=== PATIENT | male | born 1985 | race African-American/Black ===

== ENCOUNTER 2019-11-07 20:31 | Emergency (ER) | payer OTHER, SELFPAY ==
--- NOTE | ~2019-11-07 | CT_ITS ---
EXAMINATION: CT soft tissue neck w con DATE: 11/07/2019 21:47 INDICATION: A sore throat with muffled voice TECHNIQUE: Computed tomography (CT) of the neck was performed with 75 mL Omnipaque-350 intravenous co ntrast. The dose-length product was 520.73 mGy-cm. Automated exposure control and iterative reconstru ction technique were employed. COMPARISON: None FINDINGS: There is bilateral tonsillar enlargement. No drainable fluid collection to suggest abscess. Paranasal sinuses and mastoids are pneumatized. No cervical lymphadenopathy. Visualized lung apices are unremarkable. IMPRESSION: 1. Bilateral tonsillar enlargement, compatible with tonsillitis. No evidence for drainable abscess. Reviewed, dictated and finalized at [facility]. IMPRESSION: 1. Bilateral tonsillar enlargement, compatible with tonsillitis. No evidence fo r drainable abscess.
[2019-11-07 20:33] VITALS: BP 172/96; PULSE 102; RESP 19; TEMP 36.8; O2SAT 98
[2019-11-07 21:35] LABS: Basophils Absolute Auto 0.1 K/mm3 (0.0-0.1); Basophils Percent Auto 0.4 % (0.2-1.2); Eosinophils Percent Auto 0.2 % (0-4.4); Hematocrit 40.2 % (42.0-52.0); Hemoglobin 13.7 g/dL (14.0-18.0); Immature Granulocyte Absolute 0.07 K/mm3 (0.00-0.031); Immature Granulocyte Percent A 0.4 % (0-0.5); Lymphocytes Absolute Auto 1.71 K/mm3 (0.9-3.2); Lymphocytes Percent Auto 9.2 % (18.3-44.2); Mean Corpuscular HGB Conc 34.1 g/dl (32-36); Mean Corpuscular Hemoglobin 30.6 pg (26-34); Mean Corpuscular Volume 89.9 fl (80-100); Mean Platelet Volume 9.3 fl (7.4-10.4); Monocytes Absolute Auto 1.3 K/mm3 (0.1-0.6); Monocytes Percent Auto 6.9 % (2.6-8.5); Neutrophils Absolute Auto 15.5 K/mm3 (1.3-6.7); Neutrophils Percent Auto 82.9 % (45.5-73.1); Platelet Count Result 339 k/mm3 (150-375); Red Blood Count 4.47 M/mm3 (4.6-6.20); Red Cell Distribution Width 12.5 % (11.5-14.5); White Blood Count 18.6 K/mm3 (4.5-10.0)
[2019-11-07 21:42] LABS: Estimated CRCL calculation 168 ml/min; Estimated Glomerular Filt Rate > 60
[2019-11-07 21:47] LABS: Anion Gap 11 mmol/L (8-16); Blood Urea Nitrogen 13 mg/dL (9-20); Calcium 9.1 mg/dL (8.4-10.2); Carbon Dioxide 23 mmol/L (22-30); Chloride 98 mmol/L (98-107); Estimated CRCL calculation 168 ml/min; Estimated Glomerular Filt Rate > 60; Glucose 373 mg/dL (75-110); Potassium 4.5 mmol/L (3.4-5.0); Sodium 132 mmol/L (137-145)
[2019-11-07 21:56] LABS: Monoscreen Negative (Negative); Negative Monotest Control Negative (Negative); Positive Monotest Control Positive (Positive)
[2019-11-07] MEDS: AMPICILLIN SULB 3 GM/NS 100 ML 3 GM/100 ML VIAL IVPB (22:21)
--- NOTE | 2019-11-07 23:35 | ED.GENADULT ---
HPI - General Adult General Chief complaint: Dental/Oral Stated complaint: sore throat Time Seen by Provider: 11/07/19 20:40 History of Present Illness HPI narrative: Patient is a 33-year-old male who presents ER with sore throat. Ongoing over the last couple of days. Was seen at another hospital and discharged couple days ago. Reports her throat has increased since then denies having muffled voice occasionally difficulty swallowing although he can still tolerate oral secretions and fluids. No fevers or chills. Has some discomfort in the anterior neck. No loss of range of motion. Related Data Home Medications Medication Instructions Recorded Confirmed cholecalciferol (vitamin D3) 1,250 50,000 unit PO WEEKLY 05/30/19 09/06/19 mcg (50,000 unit) capsule escitalopram oxalate 10 mg tablet 10 mg PO DAILY 05/30/19 09/06/19 atorvastatin 10 mg tablet 10 mg PO QPM tablet 06/18/19 09/06/19 Allergies Allergy/AdvReac Type Severity Reaction Status Date / Time Fish Containing Products Allergy Mild Vomiting Verified 11/07/19 20:38 peanut Allergy Anaphylaxis Verified 11/07/19 20:39 Review of Systems Constitutional: Constitutional: Denies chills, Denies fever(s) and Denies weakness ENT: Denies nasal congestion and Reports sore throat Comments: Pain with swallowing Respiratory: Respiratory: Denies cough and Denies dyspnea Gastrointestinal: Gastrointestinal: Denies abdominal pain, Denies nausea and Denies vomiting PMFSH Past Medical History Medical History (Updated 11/08/19 @ 00:00 by Sumeet Valle) Essential hypertension Type 1 diabetes mellitus with hyperglycemia, with long-term current use of insulin Surgical History Surgical History (Updated 11/07/19 @ 23:40 by Steve Borjas MD) No pertinent past surgical history Social History Social History Second hand tobacco smoke exposure: Yes Alcohol intake: current Substance use type: marijuana Gender identity (if verbalized by the patient): Male Exam Narrative: Exam Narrative: GENERAL: Well-appearing, well-nourished, and in no acute distress. HEAD: Normocephalic, atraumatic. ENT: Mucous membranes moist. Muffled voice. 3+ tonsils that are not kissing with exudate noted. Uvula midline and nonedematous. NECK: Tender anterior cervical chain lymph nodes. Trachea midline. CHEST: Clear to auscultation. No respiratory distress. HEART: Tachycardic and regular. Normal peripheral pulses. EXTREMITIES: Normal range of motion. No edema. NEURO: Alert and oriented x3. Course Course Emergency Course: Patient resting comfortably. Muffled voice improved after Decadron and Unasyn but not totally resolved. Tolerating secretions and without without stridor. Discussed return cautions and identified reasons to go to a tertiary care center. Patient verbalized understanding. Discharged with Augmentin and viscous lidocaine. strep negative. Vital Signs Vital signs: Vital Signs Temperature 98.2 F 11/07/19 20:33 Pulse Rate 102 H 11/07/19 20:33 Respiratory Rate 19 11/07/19 20:33 Blood Pressure 172/96 H 11/07/19 20:33 Pulse Oximetry 98 11/07/19 20:33 Temperature 99 F 11/07/19 23:50 Pulse Rate 104 H 11/07/19 23:50 Respiratory Rate 20 11/07/19 23:50 Blood Pressure 144/85 H 11/07/19 23:50 Pulse Oximetry 98 11/07/19 23:50 Medical Decision Making Vital Signs Vital Signs: Vital Signs Temperature 98.2 F 11/07/19 20:33 Pulse Rate 102 H 11/07/19 20:33 Respiratory Rate 19 11/07/19 20:33 Blood Pressure 172/96 H 11/07/19 20:33 Pulse Oximetry 98 11/07/19 20:33 Temperature 99 F 11/07/19 23:50 Pulse Rate 104 H 11/07/19 23:50 Respiratory Rate 20 11/07/19 23:50 Blood Pressure 144/85 H 11/07/19 23:50 Pulse Oximetry 98 11/07/19 23:50 Lab Data Result diagrams: 11/07/19 21:26 11/07/19 21:40 Labs: Lab Results 11/07/19
[2019-11-07 23:50] VITALS: BP 144/85; PULSE 104; RESP 20; TEMP 37.2; O2SAT 98
== END 2019-11-07 23:51 | disposition home or self-care (01) ==
PROVIDERS: Emergency Provider Emergency Medicine
DX: J03.90 Acute tonsillitis, unspecified (principal); E10.9 Type 1 diabetes mellitus without complications; I10 Essential (primary) hypertension; Z79.4 Long term (current) use of insulin; Z77.22 Contact with and (suspected) exposure to environmental tobacco smoke (acute) (chronic)
CPT/HCPCS: 36415; 70491; 80048; 85025; 86308; 96365; 96375; 99284; J0295; J1100; Q9967

== ENCOUNTER 2020-01-20 20:35 | Emergency (ER) | payer OTHER, SELFPAY ==
--- NOTE | ~2020-01-20 | CT_ITS ---
CT soft tissue neck w con DATE: 01/20/2020 22:50 INDICATION: Sore throat TECHNIQUE: Exam dose: 515.56 mGy-cm total exam DLP. Axial images and sagittal and coronal reconstructions following intravenous injection of 75 cc Omnipa que 350 intravenous contrast material COMPARISON: 11/07/2019 CT soft tissue neck examination FINDINGS: There is bilateral palatine tonsillar and adenoid enlargement without evidence of abscess. No cervical mass lesion or lymphadenopathy. Normal size and homogeneous attenuation of the thyroid gl and. The parotid and submandibular glands appear normal. There is narrowing of the oropharyngeal airway but the airway is otherwise patent. The lung apices are clear. Included paranasal sinuses and mastoid air cells are normally developed and aerated. IMPRESSION: Bilateral enlarged palatine tonsils and adenoids Reviewed, dictated and finalized at [facility]. Reviewed, dictated and finalized at [facility]. RS
--- NOTE | ~2020-01-20 | XR_ITS ---
XR chest 1V DATE: 01/20/2020 22:51 INDICATION: Cough, shortness of breath, fever. Hypertension. TECHNIQUE: PA chest COMPARISON: 01/28/2011 Portable AP chest at 1555 hours FINDINGS: Normal heart size. No hilar or mediastinal enlargement. No pulmonary infiltrate or consolid ation, pleural effusion or pulmonary vascular congestion or pneumothorax. IMPRESSION: No active cardiopulmonary disease Reviewed, dictated and finalized at [facility]. NG [employer]
[2020-01-20 20:42] VITALS: BP 150/101; PULSE 102; RESP 15; TEMP 36.5; O2SAT 97
--- NOTE | 2020-01-20 21:57 | ED.URI ---
HPI - URI/Sore Throat General Chief Complaint: Upper Respiratory Infection Stated Complaint: throat swelling Time Seen by Provider: 01/20/20 21:01 Source: patient Mode of arrival: ambulatory Limitations: no limitations History of Present Illness HPI Narrative: THis patient is a 34 year old male with DM who presents for evaluation of a sore throat. He states he was Related Data Home Medications Medication Instructions Recorded Confirmed cholecalciferol (vitamin D3) 1,250 50,000 unit PO WEEKLY 05/30/19 01/02/20 mcg (50,000 unit) capsule atorvastatin 10 mg tablet 10 mg PO QPM tablet 06/18/19 01/02/20 aripiprazole 5 mg tablet 5 mg PO DAILY 01/02/20 01/02/20 escitalopram oxalate 10 mg tablet 15 mg PO DAILY tablet 01/02/20 01/02/20 Allergies Allergy/AdvReac Type Severity Reaction Status Date / Time Fish Containing Products Allergy Mild Vomiting Verified 01/20/20 20:45 peanut Allergy Anaphylaxis Verified 01/20/20 20:45 [facility] Past Medical History Medical History Essential hypertension Type 1 diabetes mellitus with hyperglycemia, with long-term current use of insulin Surgical History Surgical History No pertinent past surgical history Family History Family History Grandparent Diabetes mellitus Other Hypertension Social History Social History Second hand tobacco smoke exposure: Yes Alcohol intake: current Substance use type: marijuana Gender identity (if verbalized by the patient): Male Course Vital Signs Vital signs: Vital Signs Temperature 97.7 F 01/20/20 20:42 Pulse Rate 102 H 01/20/20 20:42 Respiratory Rate 15 01/20/20 20:42 Blood Pressure 150/101 H 01/20/20 20:42 Pulse Oximetry 97 01/20/20 20:42 Temperature 97.7 F 01/20/20 20:42 Pulse Rate 102 H 01/20/20 20:42 Respiratory Rate 15 01/20/20 20:42 Blood Pressure 150/101 H 01/20/20 20:42 Pulse Oximetry 97 01/20/20 20:42 Discharge Plan Discharge Prescriptions: No Action cholecalciferol (vitamin D3) 1,250 mcg (50,000 unit) capsule 50,000 unit PO WEEKLY RF: 0 atorvastatin 10 mg tablet 10 mg PO QPM RF: 0 escitalopram oxalate [Lexapro] 10 mg tablet 15 mg PO DAILY RF: 0 aripiprazole 5 mg tablet 5 mg PO DAILY RF: 0 insulin lispro [Admelog SoloStar U-100 Insulin] 100 unit/mL insulin pen 15 unit SUB-Q TID 30 Days Qty: 15 RF: 4 Basaglar KwikPen U-100 Insulin 100 unit/mL (3 mL) insulin pen 50 unit SUB-Q QPM 30 Days Qty: 15 RF: 4 (DME) pen needle, diabetic 31 gauge x 5/16 needle See Rx Instructions .ROUTE .MEDSUPPLY Qty: 100 RF: 9 (DME) blood-glucose meter Misc See Rx Instructions .ROUTE .MEDSUPPLY Qty: 1 RF: 0 (DME) blood sugar diagnostic [Blood Glucose Test] Strip See Rx Instructions .ROUTE .MEDSUPPLY Qty: 600 RF: 3 (DME) lancets 33 gauge misc See Rx Instructions .ROUTE .MEDSUPPLY Qty: 600 RF: 3
[2020-01-20 22:02] LABS: Basophils Absolute Auto 0.1 K/mm3 (0.0-0.1); Basophils Percent Auto 0.4 % (0.2-1.2); Eosinophils Absolute Auto 0.2 K/mm3 (0-0.3); Eosinophils Percent Auto 1.2 % (0-4.4); Hemoglobin 13.8 g/dL (14.0-18.0); Immature Granulocyte Absolute 0.04 K/mm3 (0.00-0.031); Immature Granulocyte Percent A 0.3 % (0-0.5); Lymphocytes Absolute Auto 2.67 K/mm3 (0.9-3.2); Lymphocytes Percent Auto 21.5 % (18.3-44.2); Mean Corpuscular HGB Conc 33.7 g/dl (32-36); Mean Corpuscular Hemoglobin 30.4 pg (26-34); Mean Corpuscular Volume 90.3 fl (80-100); Mean Platelet Volume 9.3 fl (7.4-10.4); Monocytes Absolute Auto 1.2 K/mm3 (0.1-0.6); Monocytes Percent Auto 9.7 % (2.6-8.5); Neutrophils Absolute Auto 8.3 K/mm3 (1.3-6.7); Neutrophils Percent Auto 66.9 % (45.5-73.1); Platelet Count Result 309 k/mm3 (150-375); Red Blood Count 4.54 M/mm3 (4.6-6.20); Red Cell Distribution Width 12.7 % (11.5-14.5); White Blood Count 12.4 K/mm3 (4.5-10.0)
[2020-01-20] MEDS: KETOROLAC 30 MG/ML VIAL (*BKC) IV PUSH (22:03)
[2020-01-20 22:16] LABS: Alanine Aminotransferase 21 U/L (4-50); Albumin Level 4.2 g/dL (3.5-5.1); Alkaline Phosphatase 99 U/L (38-126); Anion Gap 5 mmol/L (8-16); Aspartate Amino Transferase 22 U/L (17-59); Bilirubin,Total 0.5 mg/dL (0.2-1.3); Blood Urea Nitrogen 14 mg/dL (9-20); CRP 4.5 mg/dL (<1.0); Calcium 9.3 mg/dL (8.4-10.2); Carbon Dioxide 33 mmol/L (22-30); Chloride 99 mmol/L (98-107); Estimated CRCL calculation 148 ml/min; Estimated Glomerular Filt Rate > 60; Glucose 220 mg/dL (75-110); Potassium 4.1 mmol/L (3.4-5.0); Sodium 137 mmol/L (137-145)
[2020-01-20 22:38] LABS: Monoscreen Negative (Negative)
[2020-01-20 22:39] LABS: Negative Monotest Control Negative (Negative); Positive Monotest Control Positive (Positive)
--- NOTE | 2020-01-20 22:49 | ED.URI ---
HPI - URI/Sore Throat General Chief Complaint: Upper Respiratory Infection Stated Complaint: throat swelling Time Seen by Provider: 01/20/20 21:01 Source: patient Mode of arrival: ambulatory Limitations: no limitations History of Present Illness HPI Narrative: This patient is a 34 year old male with history of DM and tonsillitis who presents for evaluation of a sore throat. He developed a sore throat on Monday. He reports pain with swallowing and coughing. He also has associated sinus drainage with a productive cough. He states he feels like his throat is sw[place]own. He has been taking over the counter cold medication. He denies fever, chills, nausea, vomiting, or diarrhea. He denies loss of taste or smell. He denies sick contacts. He was evaluated 2 months ago for similar symptoms and he prescribed Augmentin for tonsillitis. He has an appointment with his PCP tomorrow. Related Data Home Medications Medication Instructions Recorded Confirmed cholecalciferol (vitamin D3) 1,250 50,000 unit PO WEEKLY 05/30/19 01/02/20 mcg (50,000 unit) capsule atorvastatin 10 mg tablet 10 mg PO QPM tablet 06/18/19 01/02/20 aripiprazole 5 mg tablet 5 mg PO DAILY 01/02/20 01/02/20 escitalopram oxalate 10 mg tablet 15 mg PO DAILY tablet 01/02/20 01/02/20 Allergies Allergy/AdvReac Type Severity Reaction Status Date / Time Fish Containing Products Allergy Mild Vomiting Verified 01/20/20 20:45 peanut Allergy Anaphylaxis Verified 01/20/20 20:45 Review of Systems Review of Systems: All systems reviewed & are unremarkable except as noted in HPI and below Constitutional: Constitutional: Denies chills and Denies fever(s) Eyes: Eyes: Reports no additional eye complaints ENT: Reports nasal congestion and Reports sore throat Cardiovascular: Cardiovascular: Denies chest pain Respiratory: Respiratory: Reports cough and Denies dyspnea Gastrointestinal: Gastrointestinal: Denies abdominal pain, Denies nausea and Denies vomiting PMFSH Past Medical History Medical History Essential hypertension Type 1 diabetes mellitus with hyperglycemia, with long-term current use of insulin Surgical History Surgical History No pertinent past surgical history Family History Family History Grandparent Diabetes mellitus Other Hypertension Social History Social History Second hand tobacco smoke exposure: Yes Alcohol intake: current Substance use type: marijuana Gender identity (if verbalized by the patient): Male Exam Const: General: no acute distress and alert Nutritional Appearance: obese Orientation/consciousness: patient oriented x3 HENMT: Head: normocephalic and atraumatic Ears: external ears normal and TM's normal bilaterally General nose exam: Normal nares present Face and sinus: normal facial exam, sinuses nontender and face symmetric Mouth: Yes lip normal, Yes moist mucous membranes, No drooling and Yes tongue abnormal with white coating Teeth and gingiva: dentition normal Throat: uvular edema and other (difficult to see but what could be see was erythema and edematous) Eyes: Pupils: Equal, round and reactive pupils present EOM: EOMs intact bilaterally Chest: Chest palpation & inspection: normal inspection of the chest Resp: Effort & Inspection: normal respiratory effort and no retractions Auscultation: clear to auscultation bilaterally Cardio: Rate: regular rate Rhythm: regular rhythm Heart sounds: no murmurs GI: GI Palp: Yes Soft to palpation, No Tenderness to palpation present (GI) and No Guarding due to palpation present (GI) Neuro: General: patient oriented x3 and moves all extremities Gait exam (Neuro): Normal gait present Psych: Mental Status: mental status grossly normal
[2020-01-20] MEDS: AMOXICILLIN 500 MG CAPSULE 1000 MG PO (23:52)
[2020-01-20] MEDS: FLUCONAZOLE 100 MG TABLET 200 MG PO (23:52)
[2020-01-21 00:20] VITALS: BP 152/109; PULSE 99; RESP 20; TEMP 36.8; O2SAT 94
== END 2020-01-21 00:21 | disposition home or self-care (01) ==
PROVIDERS: Emergency Provider General Practice
DX: J03.90 Acute tonsillitis, unspecified (principal); B37.0 Candidal stomatitis; I10 Essential (primary) hypertension; E10.9 Type 1 diabetes mellitus without complications; Z77.22 Contact with and (suspected) exposure to environmental tobacco smoke (acute) (chronic)
CPT/HCPCS: 36415; 70491; 71045; 80053; 85025; 86140; 86308; 87081; 87880; 96372; 96374; 99284; A9270; J1100; J1885; Q9967

== ENCOUNTER 2022-08-25 09:24 | Outpatient (RCR) | payer OTHER, SELFPAY ==
[2022-08-25 10:11] VITALS: BMI 41.6
[2022-08-25 10:12] VITALS: BMI 41.6
== END 2022-11-15 08:17 | disposition home or self-care (01) ==
LOC: ANHDMC 09:24
PROVIDERS: Visit Provider Internal Medicine Endocrinology, Diabetes & Metabolism
DX: E10.65 Type 1 diabetes mellitus with hyperglycemia (principal); Z71.3 Dietary counseling and surveillance
CPT/HCPCS: 97802

== ENCOUNTER 2022-12-22 09:30 | Outpatient (RCR) | payer OTHER, SELFPAY ==
[2022-11-08 08:15] VITALS: BMI 41.5
[2022-11-08 08:23] VITALS: BMI 41.5
[2022-12-22 09:40] VITALS: BMI 42.3
[2022-12-22 09:45] VITALS: BMI 42.3
== END 2023-01-23 12:10 | disposition home or self-care (01) ==
LOC: ANHDMC 09:30
PROVIDERS: Visit Provider Internal Medicine Endocrinology, Diabetes & Metabolism
DX: E10.65 Type 1 diabetes mellitus with hyperglycemia (principal); Z71.3 Dietary counseling and surveillance
CPT/HCPCS: 97803

== ENCOUNTER 2024-02-29 09:30 | Outpatient (RCR) | payer OTHER, SELFPAY | END 2024-04-08 09:36 | disposition home or self-care (01) | LOC: ANHDMC 09:30 | PROVIDERS: Visit Provider Internal Medicine Endocrinology, Diabetes & Metabolism | DX: E10.65 Type 1 diabetes mellitus with hyperglycemia (principal); Z71.89 Other specified counseling | CPT/HCPCS: G0108 ==